=== PATIENT | male | born 1990 | race Two or more races ===

== ENCOUNTER → 2022-09-17 | Emergency (ER) | payer OTHER ==
[~2022-09-17] VITALS: Ht 175.3 cm; Wt 97.5 kg
[~2022-09-17] MED LIST: AMOX-CLAV 875-1 EAC1 PO; KETO10TA2 PO
== END | disposition home or self-care (01) ==
LOC: ER 22:26
DX: S51.011A Laceration without foreign body of right elbow, initial encounter (principal); S59.801A Other specified injuries of right elbow, initial encounter; W19.XXXA Unspecified fall, initial encounter; Y93.89 Activity, other specified; Y92.69 Other specified industrial and construction area as the place of occurrence of the external cause; Y99.8 Other external cause status